=== PATIENT | male | born 1985 | race Caucasian/White ===

== ENCOUNTER 2020-02-13 15:52 | Emergency (ER) | payer OTHER ==
[~2020-02-13] VITALS: Ht 182.9 cm; Wt 175.5 kg
[2020-02-13 16:00] VITALS: BP 160/96; Ht 182.9 cm; Wt 175.5 kg
[2020-02-13] MEDS ORDERED: VOLTAREN75 MG PO (17:35)
[2020-02-13] MEDS ORDERED: METHOCARBAMOL500 MG PO (17:35)
== END 2020-02-13 18:24 | disposition home or self-care (01) ==
LOC: D.ER 15:52
DX: S16.1XXA Strain of muscle, fascia and tendon at neck level, initial encounter (principal); M62.838 Other muscle spasm; E11.9 Type 2 diabetes mellitus without complications; I10 Essential (primary) hypertension; R51 Headache; M54.2 Cervicalgia; V89.2XXA Person injured in unspecified motor-vehicle accident, traffic, initial encounter; Y93.9 Activity, unspecified; Y92.9 Unspecified place or not applicable